=== PATIENT | female | born 1965 | race Caucasian/White ===

== ENCOUNTER → 2024-01-02 11:22 | Outpatient (REF) | payer OTHER, SELFPAY | LOC: WDC 11:22 | PROVIDERS: ATTENDING PHYSICIAN Obstetrics & Gynecology Gynecology; FAMILY PHYSICIAN Family Medicine | DX: Z12.31 Encounter for screening mammogram for malignant neoplasm of breast (principal) | CPT/HCPCS: 77063; 77067 ==

== ENCOUNTER → 2024-01-30 09:36 | Outpatient (REF) | payer OTHER, SELFPAY | LOC: WDC 09:36 | PROVIDERS: ATTENDING PHYSICIAN Obstetrics & Gynecology Gynecology; FAMILY PHYSICIAN Family Medicine | DX: R92.8 Other abnormal and inconclusive findings on diagnostic imaging of breast (principal) | CPT/HCPCS: 76642 ==

== ENCOUNTER → 2024-07-02 13:04 | Outpatient (REF) | payer OTHER, SELFPAY | LOC: WDC 13:04 | PROVIDERS: ATTENDING PHYSICIAN Obstetrics & Gynecology Gynecology; FAMILY PHYSICIAN Family Medicine | DX: R92.2 Inconclusive mammogram (principal) | CPT/HCPCS: 76641 ==

== ENCOUNTER → 2024-09-05 14:53 | Outpatient (REF) | payer OTHER, SELFPAY | LOC: HWRAD 14:53 | PROVIDERS: ATTENDING PHYSICIAN Otolaryngology; FAMILY PHYSICIAN Internal Medicine | DX: J32.9 Chronic sinusitis, unspecified (principal) | CPT/HCPCS: 70486 ==

== ENCOUNTER → 2024-09-28 09:24 | Outpatient (REF) | payer OTHER, SELFPAY ==
[2024-09-28 11:25] LABS: ALT (SGPT) 16 U/L (0-35); AST (SGOT) 18 U/L (14-36); Albumin 4.2 g/dl (3.5-5.0); Alkaline Phosphatase 55 U/L (38-126); Blood Urea Nitrogen 13 mg/dl (7-17); Calcium 9.6 mg/dl (8.4-10.2); Carbon Dioxide 30 mmol/L (22-30); Chloride 103 mmol/L (98-107); Glucose 89 mg/dl (70-99); HDL Cholesterol 64 mg/dl; LDL Cholesterol, Calculated 125 mg/dl; Potassium 4.3 mmol/L (3.5-5.1); Sodium 140 mmol/L (135-145); Total Bilirubin 0.5 mg/dl (0.2-1.3); Total Cholesterol 218 mg/dl (50-199); Total Protein 6.6 g/dl (6.3-8.2); Triglyceride 145 mg/dl (10-149); Very Low Density Lipoprotein 29 mg/dl (0-30); eGFR > 60.00
[2024-09-28 11:53] LABS: Glycohemoglobin (HgbA1c) 5.1 % (4.0-5.6); Vitamin D, 25-OH*** 35.7 ng/mL (30-80)
[2024-09-28 12:06] LABS: TSH Reflex To Free T4 0.34 uIU/ml (0.47-4.68)
[2024-09-28 12:37] LABS: Free T4 0.87 ng/dl (0.78-2.19)
== END ==
LOC: REG 09:24
PROVIDERS: ATTENDING PHYSICIAN Internal Medicine
DX: Z00.00 Encounter for general adult medical examination without abnormal findings (principal)
CPT/HCPCS: 36415; 80053; 80061; 82306; 83036; 84439; 84443; 86618

== ENCOUNTER → 2024-11-01 10:38 | Outpatient (REF) | payer OTHER, SELFPAY | LOC: RAD 10:38 | PROVIDERS: ATTENDING PHYSICIAN Internal Medicine | DX: Z13.820 Encounter for screening for osteoporosis (principal) | CPT/HCPCS: 77080 ==

== ENCOUNTER → 2025-01-02 12:06 | Outpatient (REF) | payer OTHER, SELFPAY | LOC: WDC 12:06 | PROVIDERS: ATTENDING PHYSICIAN Obstetrics & Gynecology Gynecology; FAMILY PHYSICIAN Family Medicine | DX: Z12.31 Encounter for screening mammogram for malignant neoplasm of breast (principal) | CPT/HCPCS: 77063; 77067 ==

== ENCOUNTER → 2025-02-06 09:26 | Outpatient (REF) | payer OTHER, SELFPAY | LOC: MRI 3T 09:26 | PROVIDERS: ATTENDING PHYSICIAN Oral & Maxillofacial Surgery | DX: M26.609 Unspecified temporomandibular joint disorder, unspecified side (principal) | CPT/HCPCS: 70336 ==